=== PATIENT | female | born 1960 | race Caucasian/White ===

== ENCOUNTER 2018-10-25 23:57 | Emergency (ER) | payer SELFPAY ==
[~2018-10-25] VITALS: Ht 152.4 cm; Wt 110.0 kg
[2018-10-26 00:02] VITALS: Ht 152.4 cm; Wt 110.0 kg
[2018-10-26] MEDS ORDERED: KETOROLAC 15 MG INJ IV STA (00:07)
[2018-10-26] MEDS ORDERED: SOD CHLORIDE 0.9% 500 ML IV STA (00:07)
--- NOTE | 2018-10-26 00:18 | ERD ---
ER Documentation Chief Complaint Chief Complaint HPI 58-year-old woman brought in by EMS from home for nonradiating nonexertional rogelio st pain beginning while watching TV. Patient states she has this type of chest pain about once or twice per year and she underwent coronary angiogram less than a year ago which revealed patent vessels. Patient used aspirin prior to arrival and states her pain has improved. She denies shortness of breath, no cough, no fevers or chills, no vomiting or diarrhea. ROS All systems reviewed and are negative except as per history of present illness. Medications Home Meds Active Scripts Ibuprofen* (Motrin*) 600 Mg Tab, 600 MG PO Q8 PRN for PAIN AND/OR INFLAMMATION, #30 TAB Prov:PETE PALMA MD 10/26/18 Allergies Allergies: Coded Allergies: ibuprofen (Verified Allergy, Unknown, 10/26/18) PMhx/Soc Pacemaker, hypertension Hx Alcohol Use: No Hx Substance Use: No Hx Tobacco Use: No FmHx Family History: No diabetes Physical Exam Vitals Vital Signs Date Temp Pulse Resp B/P (MAP) Pulse Ox O2 O2 Flow FiO2 Time Delivery Rate 10/26/18 98.3 64 16 154/84 100 02:00 (107) 10/26/18 98.3 63 16 155/85 100 00:02 (108) Per nurse's records Physical Exam GENERAL: Well-developed, well-nourished, well-hydrated, in no apparent distress, looks nontoxic in appearance HEENT: Moist mucous membranes, pink conjunctiva, no cervical spine tenderness or step-off deformities, no goiter, no jaundice or icterus, extraocular movements intact without pain. No submandibular induration, and no pharyngeal erythema NEURO: Alert and oriented 3, cranial nerves II through XII intact bilaterally, pupils equal round reactive to light, no focal deficits or facial asymmetry, sensation intact distally Strength 5/5 in upper and lower extremities bilaterally CARDIAC: Regular rate and rhythm, no murmurs rubs or gallops LUNGS: Clear bilaterally no wheezing crackles or stridor ABDOMEN: Soft nontender, no guarding, no rigidity, no rebound, no psoas sign no obturator sign. Normoactive bowel sounds SKIN: Warm and dry to touch, no abrasions, contusions, or hematomas, no lacerations, no ecchymosis, no target lesions, and without ulcers EXTREMITIES: No clubbing cyanosis or edema, calves are bilaterally symmetrical, no Homans sign, no popliteal cord sign. Distal pulses equal and bilateral PSYCH: Normal affect without agitation or irritability Result Diagram: 10/26/18 0014 10/26/18 0014 Results 24 hrs Laboratory Tests Test 10/26/18 00:14 White Blood Count 7.7 10^3/ul Red Blood Count 4.77 10^6/ul Hemoglobin 13.2 g/dl Hematocrit 41.4 % Mean Corpuscular Volume 86.8 fl Mean Corpuscular Hemoglobin 27.7 pg Mean Corpuscular Hemoglobin Concent 31.9 g/dl Red Cell Distribution Width 13.0 % Platelet Count 323 10^3/UL Mean Platelet Volume 9.3 fl Immature Granulocytes % 0.400 % Neutrophils % 54.3 % Lymphocytes % 37.0 % Monocytes % 6.1 % Eosinophils % 1.8 % Basophils % 0.4 % Nucleated Red Blood Cells % 0.0 /100WBC Immature Granulocytes # 0.030 10^3/ul Neutrophils # 4.2 10^3/ul Lymphocytes # 2.9 10^3/ul Monocytes # 0.5 10^3/ul Eosinophils # 0.1 10^3/ul Basophils # 0.0 10^3/ul Nucleated Red Blood Cells # 0.0 10^3/ul Sodium Level 140 mmol/L Potassium Level 4.0 mmol/L Chloride Level 103 mmol/L Carbon Dioxide Level 26 mmol/L Anion Gap 11 Blood Urea Nitrogen 18 mg/dl Creatinine 0.53 mg/dl Est Glomerular Filtrat Rate mL/min > 60 mL/min Glucose Level 106 mg/dl Calcium Level 9.3 mg/dl Total Bilirubin 0.5 mg/dl Direct Bilirubin 0.00 mg/dl Indirect Bilirubin 0.5 mg/dl Aspartate Amino Transf (AST/SGOT) 23 IU/L Alanine Aminotransferase (ALT/SGPT) 30 IU/L Alkaline Phosphatase 89 IU/L Troponin I < 0.012 ng/ml Total Protein 7.7 g/dl Albumin 4.3 g/dl Globulin 3.40 g/dl Albumin/Globulin Ratio 1.26 Lipase 101 U/L Current Medications Medications Dose Sig/Sakina Start Time Status Last (Trade) Ordered Route PRN Stop Time Admin Dose Reason Admin Sodium 500 ml @ Q1H STAT 10/26/18 DC 10/26/18 Chloride 500 mls/hr IV 00:07 00:35 10/26/18 01:06 Ketorolac 15 mg ONCE STAT 10/26/18 DC Tromethamine IV 00:07 (Toradol) 10/26/18 00:10 Procedures/MDM IV line was established patient was placed on gas analyst rhythm strip revealed a sinus rhythm at about 80 bpm with upright P and T waves. Patient was afebrile EKG performed, read by me revealed a paced atrial rhythm at 66 bpm, left axis deviation, intraventricular block, no concerning ST elevations or depressions noted Chest X-ray 1V Interpreted by me: Soft Tissue: No acute abnormalities Bones: No acute abnormalities Mediastinum/Cardiac Silhouette/Lungs: No acute abnormalities I administered 1 L normal saline IV, Toradol 15 mg IV x1, CBC and electrolytes were normal, liver function tests were normal, troponin was negative Patient's pain completely resolved and vital signs are normal at this time. She had a normal coronary angiogram just about 1 year ago making acute coronary syndrome highly unlikely, furthermore she has had similar episodes of pain in the past. At this time she looks well and feels much better and will be discharged to follow-up with PMD for continued outpatient management Differential diagnoses considered, included but not limited to acute coronary syndrome, pulmonary embolism, aortic dissection, abdominal aortic aneurysm, sepsis, stroke, meningitis, encephalitis, pneumonia, appendicitis, cholecystitis, bowel obstruction, pyelonephritis, nephrolithiasis, cystitis, as well as metabolic, hematologic, and electrolyte abnormalities. As well as abscess, cellulitis, fractures, and dislocations. Patient feels much better at this time, and vital signs are normal, symptoms have improved. I did give strict instructions to return to the ED if symptoms continue or worsen, patient will otherwise follow-up with primary care physician. Patient understood instructions and agreed to plan. Disclaimer: Inadvertent spelling and grammatical errors are likely due to EHR /dictation software use and do not reflect on the overall quality of patient care. Also, please note that the electronic time recorded on this note does not necessarily reflect the actual time of the patient encounter. Departure Diagnosis: Primary Impression: Chest pain Chest pain type: unspecified Qualified Codes: R07.9 - Chest pain, unspecified Condition: PETE Thomas MD Oct 26, 2018 00:18
[2018-10-26] MEDS ORDERED: IBUP-1542 PO (01:27)
[2018-10-26 02:00] VITALS: BP 154/84; PULSE 64; RESP 16
== END 2018-10-26 02:01 | disposition home or self-care (01) ==
LOC: E/R 23:57
DX: R07.9 Chest pain, unspecified (principal)
CPT/HCPCS: 36415; 71045; 80053; 83690; 84484; 85025; 93005; 99285; J7040